=== PATIENT | male | born 1990 | race Caucasian/White ===

== ENCOUNTER 2016-12-20 07:16 | Emergency (ER) | payer SELFPAY ==
[~2016-12-20] VITALS: Ht 193 cm; Wt 122.5 kg
[~2016-12-20 07:16] MED LIST: AZIT250T6 PO; BENZ100C PO; HYDR-971 PO; IBUP-1007 PO; NAPR550T PO
[2016-12-20 07:33] VITALS: BP 150/84
[2016-12-20] MEDS ORDERED: NAPROXEN 500 MG TABLET PO STA (07:36)
[2016-12-20] MEDS ORDERED: CYCL10TA2 PO (07:44)
[2016-12-20] MEDS ORDERED: NAPR500T8 PO (07:44)
[2016-12-20] MEDS ORDERED: HYDR-971 PO (07:44)
--- NOTE | 2016-12-20 07:44 | PHYS DOC ---
Past Medical History Past Medical History: No Pertinent History Past Surgical History: No Surgical History Alcohol Use: Rarely Drug Use: None Adult General Chief Complaint Chief Complaint: LOWER BACK PAIN OR INJURY HPI HPI Patient is a 26 year old male who presents with moderate bilateral low back pain worse on the left side that began one week ago and has been going on intermittently since then and got worse yesterday. 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 Patient denies any injury. He states the pain is worse when he sits down. Denies any loss of bowel bladder function. Denies any pain radiating to bilateral lower extremities. Review of Systems Review of Systems Constitutional: Denies fever or chills [] : Denies dysuria or hematuria [] Musculoskeletal: Bilateral low back pain worse on the left side. Integument: Denies rash or skin lesions [] Neurologic: Denies headache, focal weakness or sensory changes [] Endocrine: Denies polyuria or polydipsia [] Allergies Allergies Allergies Uncoded Allergies Type Severity Reaction Last Updated Verified SULFA Allergy Mild RASH 08/02/16 Physical Exam Physical Exam Constitutional: Well developed, well nourished, no acute distress, non-toxic appearance. [] Abdomen: Bowel sounds normal, soft, no tenderness, no masses, no pulsatile masses. [] Skin: Warm, dry, no erythema, no rash. [] Back: Diffuse bilateral low lumbar paraspinal muscle tenderness worse on the left side, no midline tenderness, no CVA tenderness. [] Extremities: No tenderness, no cyanosis, no clubbing, ROM intact, no edema. [] Neurologic: Alert and oriented X 3, normal motor function, normal sensory function, no focal deficits noted. [] Psychologic: Affect normal, judgement normal, mood normal. [] EKG EKG [] Radiology/Procedures Radiology/Procedures [] Course & Med Decision Making Course & Med Decision Making Pertinent Labs and Imaging studies reviewed. (See chart for details) [] Dragon Disclaimer Dragon Disclaimer This electronic medical record was generated, in whole or in part, using a voice recognition dictation system. Departure Departure Impression: Primary Impression: Back pain Disposition: HOME, SELF-CARE Condition: STABLE Referrals: NO PCP (PCP) Follow-up with your own primary care doctor in one week Patient Instructions: Back Pain, Adult Additional Instructions: You were seen for back pain. Take the medications provided as needed. You can apply ice or heat to your back. Follow-up with your doctor in one week. Come back to the emergency room if symptoms worsen especially if you develop any loss of bowel or bladder function. Scripts Cyclobenzaprine Hcl 10 Mg Tablet1 Tab PO TID #30 TAB Prov:ERIKASARITHA Goins YING 12/20/16 Hydrocodone/Apap 5-325 ([place] 5-325 Tablet)1 Each Tablet1 Tab PO Q6-8HRS PRN PAIN #12 TAB Prov:SARITHA NEGRETE APRN 12/20/16 Naproxen 500 Mg Tablet.dr1 Tab PO BID #60 TAB Ref 2 Prov:SARITHA NEGRETE APRN 12/20/16 Problem Qualifiers Primary Impression: Back pain Back pain location: low back pain Chronicity: acute Back pain laterality: bilateral Sciatica presence: without sciatica Qualified Code: M54.5 - Low back pain ISABELJUANSARITHA Goins APRN Dec 20, 2016 07:44
[2016-12-20] MEDS ORDERED: CYCLOBENZAPRINE 10 MG TABLET. PO ONE (07:45)
[2016-12-20] MEDS ORDERED: HYDROCODONE/APAP 5/325MG TABLET. PO ONE (07:45)
== END 2016-12-20 07:56 | disposition home or self-care (01) ==
LOC: ER 07:16
DX: M54.5 Low back pain (principal); Z88.2 Allergy status to sulfonamides; X58.XXXA Exposure to other specified factors, initial encounter; Y93.61 Activity, american tackle football; Y99.8 Other external cause status; Y92.89 Other specified places as the place of occurrence of the external cause
CPT/HCPCS: 99284

== ENCOUNTER 2016-12-29 21:39 | Emergency (ER) | payer OTHER ==
[~2016-12-29] VITALS: Ht 193 cm; Wt 122.5 kg
[~2016-12-29 21:39] MED LIST changes: +CYCL10TA2 PO; +NAPR500T8 PO
[2016-12-29 21:50] VITALS: BP 139/93
[2016-12-29 22:21] LABS: OBC FLU VALID
[2016-12-29] MEDS ORDERED: CYCL10TA2 PO (22:28)
[2016-12-29] MEDS ORDERED: BENZ100C PO (22:28)
[2016-12-29] MEDS ORDERED: IBUP-1007 PO (22:28)
--- NOTE | 2016-12-29 22:28 | PHYS DOC ---
Past Medical History Past Medical History: No Pertinent History Past Surgical History: No Surgical History Alcohol Use: Rarely Drug Use: None Adult General Chief Complaint Chief Complaint: GENERALIZED BODY ACHES HPI HPI Patient is a 26 year old man who presents with generalized body aches and a cough that began 2 days. Patient denies any fever. Review of Systems Review of Systems Constitutional: Generalized body aches Eyes: Denies change in visual acuity, redness, or eye pain [] HENT: Denies nasal congestion or sore throat [] Respiratory: Denies cough or shortness of breath [] Cardiovascular: No additional information not addressed in HPI [] GI: Denies abdominal pain, nausea, vomiting, bloody stools or diarrhea [] : Denies dysuria or hematuria [] Musculoskeletal: Denies back pain or joint pain [] Integument: Denies rash or skin lesions [] Neurologic: Denies headache, focal weakness or sensory changes [] Endocrine: Denies polyuria or polydipsia [] Allergies Allergies Allergies Coded Allergies Type Severity Reaction Last Updated Verified Sulfa (Sulfonamide Antibiotics) Allergy Intermediate Rash 12/20/16 No Physical Exam Physical Exam Constitutional: Well developed, well nourished, no acute distress, non-toxic appearance. [] HENT: Normocephalic, atraumatic, bilateral external ears normal, oropharynx moist, no oral exudates, nose normal. [] Eyes: PERRLA, EOMI, conjunctiva normal, no discharge. [] Neck: Normal range of motion, no tenderness, supple, no stridor. [] Cardiovascular:Heart rate regular rhythm, no murmur [] Lungs & Thorax: Bilateral breath sounds clear to auscultation [] Abdomen: Bowel sounds normal, soft, no tenderness, no masses, no pulsatile masses. [] Skin: Warm, dry, no erythema, no rash. [] Back: No tenderness, no CVA tenderness. [] Extremities: No tenderness, no cyanosis, no clubbing, ROM intact, no edema. [] Neurologic: Alert and oriented X 3, normal motor function, normal sensory function, no focal deficits noted. [] Psychologic: Affect normal, judgement normal, mood normal. [] Current Patient Data Vital Signs Vital Signs Date Time Temp Pulse Resp B/P Pulse Ox O2 Delivery O2 Flow Rate FiO2 12/29/16 21:50 97.5 95 18 98 Room Air 97.5 Lab Values Laboratory Tests Test 12/29/16 21:55 Influenza Type A Antigen Negative (NEGATIVE) Influenza Type B Antigen Negative (NEGATIVE) EKG EKG [] Radiology/Procedures Radiology/Procedures [] Course & Med Decision Making Course & Med Decision Making Pertinent Labs and Imaging studies reviewed. (See chart for details) Patient is in the ED with generalized body aches and a cough that began 2 days. He is afebrile in the ED. Negative influenza A or B. Symptoms are probably viral. Discharged with Tessalon Perles for the cough. Tylenol/ Motrin recommended for fever or body pains. Follow-up with primary care doctor in one week. Dragon Disclaimer Dragon Disclaimer This electronic medical record was generated, in whole or in part, using a voice recognition dictation system. Departure Departure Impression: Primary Impression: Body aches Additional Impression: Cough Disposition: HOME, SELF-CARE Condition: STABLE Referrals: NO PCP (PCP) Follow-up with the primary care doctor in a week Patient Instructions: Cough, Adult Additional Instructions: You were seen for a cough and body aches. Your influenza test is negative. Your symptoms are probably viral. Push fluids maintain good hand hygiene. Rest. Follow-up with her primary care doctor in one week. Scripts Cyclobenzaprine Hcl 10 Mg Tablet1 Tab PO TID #30 TAB Prov:SARITHA NEGRETE APRN 12/29/16 Ibuprofen 600 Mg [id number] Mg PO PRN Q6HRS PRN INFLAMMATION #30 TAB Prov:SARITHA NEGRETE OCCUPATIONAL THERAPIST HOME BASED 12/29/16 Benzonatate (Tessalon Perle)100 Mg Capsule1 Cap PO TID #30 CAP Prov:SARITHA NEGRETE APRN 12/29/16 Problem Qualifiers SARITHA NEGRETE APRN Dec 29, 2016 22:28
== END 2016-12-29 22:35 | disposition home or self-care (01) ==
LOC: ER 21:39
DX: M79.1 Myalgia (principal); R05 Cough; Z88.2 Allergy status to sulfonamides
CPT/HCPCS: 87804; 99284